=== PATIENT | male | born 1980 | race Hispanic/Latino ===

== ENCOUNTER 2023-08-28 11:07 | Emergency (ER) | payer SELFPAY ==
[2023-08-28] MEDS ORDERED: Famotidine/PF 20 mg/2ml Vial ONE (11:47)
[2023-08-28] MEDS ORDERED: Lorazepam 1 MG TAB ONE (11:47)
[2023-08-28] MEDS ORDERED: Ondansetron PF 4 MG/2 ML Vial ONE (11:47)
[2023-08-28] MEDS ORDERED: Lidocaine 2% Viscous 10 mL, Alum & Magn 30 mL SSW SCH (12:00)
[2023-08-28 12:12] LABS: #Basophils 0.1 10x3/uL (0.0-0.2); #Eosinphils 0.5 10x3/uL (0.0-0.5); #Monocytes 0.6 10x3/uL (0.0-1.1); #Neutrophils 4.4 10x3/uL (1.5-8.4); %Basophils 1.5 % (0.0-2.0); %Eosinophils 7.4 % (0.0-6.0); %Monocytes 9.5 % (0.0-10.0); %Neutrophils 65.3 % (40.0-75.0); Hematocrit 43.8 % (38.8-50.0); Hemoglobin 15.2 g/dL (13.5-17.5); Mean Corpuscular HGB CONC 34.7 g/dL (32.0-36.0); Mean Corpuscular Hemoglobin 34.2 pg (27.0-33.0); Mean Corpuscular Volume 98.6 fl (81.2-95.1); Mean Platelet Volume 11.6 fl (7.4-10.4); Platelet Count 56 10x3/uL (150-450); RBC Distribution Width 13.2 % (11.5-14.5); Red Blood Cell (RBC) Count 4.44 10x6/uL (4.32-5.72); White Blood Cell (WBC) Count 6.8 10x3/uL (3.5-10.5)
[2023-08-28 12:20] LABS: ALT (SGPT) 56 U/L (8-55); AST (SGOT) 127 U/L (5-34); Albumin 3.6 g/dL (3.5-5.0); Alcohol Less than 10.0 mg/dL (Less than 10); Alkaline Phosphatase 299 U/L (40-110); Anion Gap 13 mmol/L (10-20); BUN (Urea Nitrogen) 8 mg/dL (8.9-20.6); Bilirubin, Total 5.4 mg/dL (0.2-1.2); Calc. Creatinine Clearance 0 mL/min (70-130); Calcium 8.2 mg/dL (7.8-10.44); Carbon Dioxide 22 mmol/L (22-29); Chloride 105 mmol/L (98-107); Estimated GFR 122; Globulin 4.3 g/dL (2.4-3.5); Glucose 103 mg/dL (70-105); Lipase 96 U/L (8-78); Potassium 3.7 mmol/L (3.5-5.1); Protein, Total 7.9 g/dL (6.0-8.3); Sodium 136 mmol/L (136-145)
[2023-08-28 12:48] LABS: Large Platelets SLIGHT (None Seen); Platelet Adequacy Comment Appears Decreased
== END 2023-08-28 13:02 | disposition home or self-care (01) ==
LOC: CSHERS 11:07
DX: F10.20 Alcohol dependence, uncomplicated (principal)
CPT/HCPCS: 71045; 80053; 80307; 83690; 83735; 85025; 96374; 96375; J2405; S0028

== ENCOUNTER 2023-08-28 19:29 | Inpatient (IN) | payer SELFPAY ==
[~2023-08-28 19:29] MED LIST: Iopamidol 300 61% 100 ML VIAL FS ONE
[2023-08-28] MEDS ORDERED: Lorazepam 2 MG/ML VIAL ONE ×6 (19:59→23:15)
[2023-08-28 20:20] LABS: Phosphorus 2.9 mg/dL (2.3-4.7)
[2023-08-28 20:22] LABS: ALT (SGPT) 49 U/L (8-55); AST (SGOT) 118 U/L (5-34); Acetaminophen Less than 10 mcg/mL (10.0-30.0); Albumin 3.4 g/dL (3.5-5.0); Alcohol Less than 10.0 mg/dL (Less than 10); Alkaline Phosphatase 259 U/L (40-110); Anion Gap 15 mmol/L (10-20); BUN (Urea Nitrogen) 9 mg/dL (8.9-20.6); Bilirubin, Total 5.6 mg/dL (0.2-1.2); Calc. Creatinine Clearance 0 mL/min (70-130); Calcium 7.5 mg/dL (7.8-10.44); Carbon Dioxide 14 mmol/L (22-29); Chloride 107 mmol/L (98-107); Estimated GFR 122; Globulin 3.7 g/dL (2.4-3.5); Glucose 96 mg/dL (70-105); Lipase 99 U/L (8-78); Magnesium 1.8 mg/dL (1.6-2.6); Potassium 3.7 mmol/L (3.5-5.1); Protein, Total 7.1 g/dL (6.0-8.3); Salicylate Less than 8.0 mg/dL (15.0-30.0); Sodium 132 mmol/L (136-145)
[2023-08-28 20:25] LABS: Troponin I Less than 0.010 ng/mL (< 0.028)
[2023-08-28 20:32] LABS: #Basophils 0.1 10x3/uL (0.0-0.2); #Eosinphils 0.4 10x3/uL (0.0-0.5); #Monocytes 0.6 10x3/uL (0.0-1.1); #Neutrophils 4.3 10x3/uL (1.5-8.4); %Basophils 1.6 % (0.0-2.0); %Eosinophils 6.9 % (0.0-6.0); %Lymphocytes 14.2 % (18.0-47.0); %Monocytes 10.1 % (0.0-10.0); %Neutrophils 66.9 % (40.0-75.0); Hematocrit 41.1 % (38.8-50.0); Hemoglobin 14.5 g/dL (13.5-17.5); Mean Corpuscular HGB CONC 35.3 g/dL (32.0-36.0); Mean Corpuscular Hemoglobin 34.7 pg (27.0-33.0); Mean Corpuscular Volume 98.3 fl (81.2-95.1); Mean Platelet Volume 11.3 fl (7.4-10.4); Platelet Count 56 10x3/uL (150-450); RBC Distribution Width 13.1 % (11.5-14.5); Red Blood Cell (RBC) Count 4.18 10x6/uL (4.32-5.72); White Blood Cell (WBC) Count 6.4 10x3/uL (3.5-10.5)
[2023-08-28 20:47] LABS: INR-International Normal Ratio 1.4; PTT 34.1 sec (22.0-33.0); Prothrombin Time 15.1 sec (9.5-12.1)
[2023-08-28] MEDS ORDERED: Etomidate 40 MG (20 mL) VIAL ONE (21:06)
[2023-08-28] MEDS ORDERED: Rocuronium Bromide 10 MG/ML (10ML VIAL) ONE (21:06)
[2023-08-28] MEDS ORDERED: FENTANYL 2,000MCG/100-0.9%NACL 100 ML ONE (21:11)
[2023-08-28 21:16] LABS: Platelet Adequacy Comment Appears Decreased
[2023-08-28] MEDS ORDERED: Midazolam HCl 10 mg/2 ml Vial ONE (21:20)
[2023-08-28] MEDS ORDERED: Midazolam In 0.9 % NaCl/PF 100 MG in Premix 1 BAG IVPB SCH (21:30)
[2023-08-28 22:07] LABS: Amphetamine Not Detected (NotDetected); Barbiturates Screen Not Detected (NotDetected); Benzodiazepine Screen Detected (NotDetected); Cocaine Metabolite Screen Not Detected (NotDetected); Methadone Not Detected (NotDetected); Methamphetamine Not Detected (NotDetected); Opiate Screen Not Detected (NotDetected); Oxycodone Screen Not Detected (NotDetected); Phencyclidine (PCP) Not Detected (NotDetected); THC/Cannabinoid Screen Not Detected (NotDetected); Tricyclic Screen Not Detected (NotDetected)
[2023-08-28] MEDS ORDERED: Ondansetron ODT 4 MG TAB PO PRN (22:32)
[2023-08-28] MEDS ORDERED: Ondansetron PF 4 MG/2 ML Vial IVP PRN (22:32)
[2023-08-28] MEDS ORDERED: Ventilator Sedation Protocol FS SCH (22:45)
[2023-08-28] MEDS ORDERED: Morphine 2 MG/ML VIAL SLOW IVP PRN (22:45)
[2023-08-28] MEDS ORDERED: Fentanyl BOLUS 250 ML IVPB PRN (22:45)
[2023-08-28] MEDS ORDERED: Propofol 1,000 MG/100 ML VIAL IV PRN (22:45)
[2023-08-28] MEDS ORDERED: DISCONTINUE PREVIOUS NARCOTIC PAIN MEDICATIONS AND BENZODIAZEPINES FS SCH (22:45)
[2023-08-28] MEDS ORDERED: Propofol BOLUS 1,000 MG/100 ML VIAL IV PRN (22:45)
[2023-08-28] MEDS ORDERED: Lorazepam 2 MG/ML VIAL SLOW IVP PRN (22:45)
[2023-08-29] MEDS: Multivitamins, Adult 10 ML, Thiamine HCl 100 MG, Folic Acid 1 MG in Dextrose 5 %-0.45 %... IV SCH
[2023-08-29 00:10] VITALS: BMI 26.9
[2023-08-29 00:46] LABS: Critical Notified Time 2230
[2023-08-29] MEDS ORDERED: cefTRIAXone\\ROCEPHIN 2 GM in Sodium Chloride 0.9% 100 ML IVPB SCH (01:15)
[2023-08-29] MEDS: Pantoprazole 40 MG VIAL IVP SCH ×2 (01:29→20:08)
[2023-08-29] MEDS: Piperacillin/Tazobactam 3.375 GM in Sodium Chloride 0.9% 100 ML IVPB SCH ×2 (01:30→05:06)
[2023-08-29 01:34] LABS: Actual Bicarbonate (HCO3a) 20.3 mEq/L (22-28); Base Excess (BEa) -4.4 mEq/L (-2.0 to +3.0); CO2 Tension 36.4 mmHg (35.0-45.0); Hematocrit-ABG 42 % (42.0-52.0); Hemoglobin (Hb) 14.4 g/dL (14.0-18.0); O2 Tension (PaO2), arterial 216.6 mmHg (80.0-100.0); pH, Arterial 7.364 (7.35-7.45)
[2023-08-29 01:35] LABS: Analyzer IN Cardio CS ER; Carboxyhemoglobin (COHb) 0.4 gm% (0.0-3.0); Potassium - ABG Lab 3.31 mmol/L (3.70-5.30); Puncture Site RBA
[2023-08-29 01:36] LABS: Bilirubin Neg (Negative); Blood, Urine 50 (Negative); Clarity Clear (Clear); Glucose, Urine (Dipstick) Normal (Negative); Ketone, Urine Negative (Negative); Leukocyte Negative (Negative); Nitrite Negative (Negative); Protein, Urine (Dipstick) 30 mg/dl (Neg-Trace)
[2023-08-29 01:37] LABS: Draw Time: 2225; RapidComm Collect By CP.LF1; RapidComm User CP.LF1
[2023-08-29 01:53] LABS: Bacteria/HPF None Seen HPF (None Seen); CAUTI Indications for Culture Alt mental st,lethar; Squamous Epithelial None Seen HPF (0-3); WBC/HPF 0-3 HPF (0-3)
[2023-08-29 01:54] LABS: Urine Culture Reflex No No
[2023-08-29] MEDS ORDERED: Piperacillin/Tazobactam 3.375 GM in Sodium Chloride 0.9% 100 ML IVPB SCH (02:00)
[2023-08-29 03:39] LABS: ALT (SGPT) 44 U/L (8-55); AST (SGOT) 100 U/L (5-34); Alkaline Phosphatase 233 U/L (40-110); Anion Gap 12 mmol/L (10-20); BUN (Urea Nitrogen) 9 mg/dL (8.9-20.6); Bilirubin, Total 4.8 mg/dL (0.2-1.2); Calc. Creatinine Clearance 156 mL/min (70-130); Calcium 7.2 mg/dL (7.8-10.44); Carbon Dioxide 18 mmol/L (22-29); Chloride 108 mmol/L (98-107); Estimated GFR 122; Globulin 3.3 g/dL (2.4-3.5); Glucose 100 mg/dL (70-105); Potassium 3.2 mmol/L (3.5-5.1); Protein, Total 6.3 g/dL (6.0-8.3); Sodium 135 mmol/L (136-145)
[2023-08-29] MEDS ORDERED: Electrolyte Replacement Protocol FS SCH (04:15)
[2023-08-29] MEDS: Magnesium 2 GM/50 ML(in water) 2 GM in Premix 1 BAG IVPB SCH (05:06)
[2023-08-29] MEDS: Potassium Chloride 20 MEQ in Premix 1 BAG IVPB SCH (05:06)
[2023-08-29 06:04] LABS: Magnesium 1.9 mg/dL (1.6-2.6)
[2023-08-29 07:43] LABS: RapidComm Comment CP.LF1
[2023-08-29] MEDS ORDERED: Lorazepam 1 MG TAB PO PRN (08:16)
[2023-08-29] MEDS ORDERED: Lorazepam 2 MG/ML VIAL IVPB PRN (08:16)
[2023-08-29] MEDS ORDERED: Ondansetron ODT 4 MG TAB PO PRN (08:16)
[2023-08-29] MEDS ORDERED: Electrolyte Replacement Protocol 1 EACH FS SCH (08:30)
[2023-08-29] MEDS ORDERED: Enoxaparin 40 MG (0.4 mL) SYRINGE SC SCH (09:00)
[2023-08-29] MEDS: Lorazepam 1 MG TAB PO SCH (10:33)
[2023-08-29] MEDS: Multivit, Therapeutic 1 TAB PO SCH (10:33)
[2023-08-29] MEDS: Folic Acid 1 MG TAB PO SCH (10:34)
[2023-08-29] MEDS: Thiamine HCl 200 MG/2 ML VIAL SLOW IVP SCH (10:34)
[2023-08-29] MEDS: Dexmedetomidine In 0.9 % NaCl 100 ML IVPB SCH (10:34)
[2023-08-29] MEDS: FENTANYL 2,000MCG/100-0.9%NACL 100 ML IVPB SCH (12:23)
[2023-08-29] MEDS: Acetaminophen 325 MG Suppository PR SCH (21:22)
[2023-08-30 03:49] LABS: #Basophils 0.1 10x3/uL (0.0-0.2); #Eosinphils 0.4 10x3/uL (0.0-0.5); #Monocytes 0.7 10x3/uL (0.0-1.1); #Neutrophils 3.7 10x3/uL (1.5-8.4); %Basophils 1.2 % (0.0-2.0); %Eosinophils 7.2 % (0.0-6.0); %Monocytes 11.9 % (0.0-10.0); %Neutrophils 65.3 % (40.0-75.0); Hematocrit 39.8 % (38.8-50.0); Hemoglobin 13.6 g/dL (13.5-17.5); Mean Corpuscular HGB CONC 34.2 g/dL (32.0-36.0); Mean Corpuscular Hemoglobin 34.8 pg (27.0-33.0); Mean Corpuscular Volume 101.8 fl (81.2-95.1); Mean Platelet Volume 11.4 fl (7.4-10.4); Platelet Count 46 10x3/uL (150-450); RBC Distribution Width 13.1 % (11.5-14.5); Red Blood Cell (RBC) Count 3.91 10x6/uL (4.32-5.72); White Blood Cell (WBC) Count 5.7 10x3/uL (3.5-10.5)
[2023-08-30 03:57] LABS: ALT (SGPT) 45 U/L (8-55); AST (SGOT) 119 U/L (5-34); Albumin 2.9 g/dL (3.5-5.0); Alkaline Phosphatase 193 U/L (40-110); Anion Gap 10 mmol/L (10-20); BUN (Urea Nitrogen) 10 mg/dL (8.9-20.6); Bilirubin, Total 5.8 mg/dL (0.2-1.2); Calc. Creatinine Clearance 162 mL/min (70-130); Calcium 7.5 mg/dL (7.8-10.44); Carbon Dioxide 18 mmol/L (22-29); Chloride 110 mmol/L (98-107); Estimated GFR 124; Globulin 3.5 g/dL (2.4-3.5); Glucose 92 mg/dL (70-105); Magnesium 2.2 mg/dL (1.6-2.6); Phosphorus 3.1 mg/dL (2.3-4.7); Potassium 3.9 mmol/L (3.5-5.1); Protein, Total 6.4 g/dL (6.0-8.3); Sodium 134 mmol/L (136-145)
[2023-08-30 05:14] LABS: Platelet Adequacy Comment Appears Decreased; RBC Morph Comment Within Normal Limits
[2023-08-30] MEDS ORDERED: Lorazepam 1 MG TAB PO PRN (08:16)
[2023-08-30] MEDS ORDERED: Magnevist 469MG/ML 20 ML VIAL ONE (12:07)
[2023-08-30] MEDS: Propranolol 10 MG TAB PO SCH (21:35)
[2023-08-31 04:45] LABS: #Basophils 0.1 10x3/uL (0.0-0.2); #Eosinphils 0.3 10x3/uL (0.0-0.5); #Monocytes 0.8 10x3/uL (0.0-1.1); #Neutrophils 3.4 10x3/uL (1.5-8.4); %Basophils 0.9 % (0.0-2.0); %Eosinophils 6.1 % (0.0-6.0); %Lymphocytes 15.4 % (18.0-47.0); %Monocytes 15.3 % (0.0-10.0); %Neutrophils 61.9 % (40.0-75.0); Hemoglobin 13.1 g/dL (13.5-17.5); Mean Corpuscular HGB CONC 34.5 g/dL (32.0-36.0); Mean Corpuscular Hemoglobin 34.6 pg (27.0-33.0); Mean Corpuscular Volume 100.3 fl (81.2-95.1); Mean Platelet Volume 11.6 fl (7.4-10.4); Platelet Count 60 10x3/uL (150-450); RBC Distribution Width 12.8 % (11.5-14.5); Red Blood Cell (RBC) Count 3.79 10x6/uL (4.32-5.72); White Blood Cell (WBC) Count 5.4 10x3/uL (3.5-10.5)
[2023-08-31 05:03] LABS: ALT (SGPT) 44 U/L (8-55); AST (SGOT) 97 U/L (5-34); Albumin 2.8 g/dL (3.5-5.0); Alkaline Phosphatase 223 U/L (40-110); Anion Gap 10 mmol/L (10-20); BUN (Urea Nitrogen) 8 mg/dL (8.9-20.6); Bilirubin, Total 3.4 mg/dL (0.2-1.2); Calc. Creatinine Clearance 163 mL/min (70-130); Calcium 7.7 mg/dL (7.8-10.44); Carbon Dioxide 23 mmol/L (22-29); Chloride 106 mmol/L (98-107); Estimated GFR 124; Globulin 3.2 g/dL (2.4-3.5); Glucose 95 mg/dL (70-105); Phosphorus 2.8 mg/dL (2.3-4.7); Potassium 4.1 mmol/L (3.5-5.1); Sodium 135 mmol/L (136-145)
[2023-08-31] MEDS ORDERED: Lorazepam 1 MG TAB PO PRN (08:16)
[2023-08-31] MEDS ORDERED: Lorazepam 0.5 MG TAB PO SCH (08:30)
[2023-08-31] MEDS: Magnesium 2 GM/50 ML(in water) 2 GM in Premix 1 BAG IVPB SCH (08:47)
[2023-08-31] MEDS: LevoFLOXacin 750 MG TAB PO SCH (09:52)
[2023-08-31 12:17] VITALS: BP 124/74; TEMP 98.3
[2023-09-01] MEDS ORDERED: LevoFLOXacin 750 MG TAB PO SCH (06:00)
[2023-09-01] MEDS ORDERED: Lorazepam 0.5 MG TAB PO PRN (08:16)
[2023-09-01] MEDS ORDERED: Thiamine 100 MG TAB PO SCH (09:00)
== END 2023-08-31 12:49 | disposition home or self-care (01) | DRG 871 ==
LOC: CSHERS 19:29 → CSHICU 23:20 → CSHTELE 08-30 18:38
PROVIDERS: ADMIT Student in an Organized Health Care Education/Training Program; ATTEND Family Medicine
PROC: 4A033R1 Measurement of Arterial Saturation, Peripheral, Percutaneous Approach (ICD-10-PCS; principal; 2023-08-28)
PROC: 5A1935Z Respiratory Ventilation, Less than 24 Consecutive Hours (ICD-10-PCS; 2023-08-28)
PROC: 0BH17EZ Insertion of Endotracheal Airway into Trachea, Via Natural or Artificial Opening (ICD-10-PCS; 2023-08-28)
PROC: 3E03329 Introduction of Other Anti-infective into Peripheral Vein, Percutaneous Approach (ICD-10-PCS; 2023-08-29)
DX: A41.9 Sepsis, unspecified organism (principal); G93.41 Metabolic encephalopathy; J96.01 Acute respiratory failure with hypoxia; F10.239 Alcohol dependence with withdrawal, unspecified; R44.0 Auditory hallucinations; K76.0 Fatty (change of) liver, not elsewhere classified; Z90.49 Acquired absence of other specified parts of digestive tract; E80.6 Other disorders of bilirubin metabolism; R74.01 Elevation of levels of liver transaminase levels; K80.20 Calculus of gallbladder without cholecystitis without obstruction; K74.60 Unspecified cirrhosis of liver; D69.6 Thrombocytopenia, unspecified; R41.0 Disorientation, unspecified; I27.20 Pulmonary hypertension, unspecified; R16.1 Splenomegaly, not elsewhere classified; Z85.028 Personal history of other malignant neoplasm of stomach
CPT/HCPCS: 36415; 36416; 36600; 70450; 71045; 74177; 74183; 80053; 80306; 80307; 81001; 82105; 82140; 82805; 83605; 83690; 83735; 84100; 84145; 84484; 85025; 85610; 85730; 87040; 93005; 93010; 94002; 94003; 94760; A9579; C9113; J2060; J2250; J2543; J3411; J3475; J3480; J3490; J7042; Q9967

== ENCOUNTER 2024-05-16 16:39 | Emergency (ER) | payer SELFPAY ==
[2024-05-16 18:31] LABS: #Basophils 0.11 10x3/uL (0.0-0.2); #Eosinophils 0.25 10x3/uL (0.0-0.5); #Monocytes 0.54 10x3/uL (0.0-1.1); #Neutrophils 3.57 10x3/uL (1.5-8.4); %Basophils 1.8 % (0.0-2.0); %Eosinophils 4.2 % (0.0-6.0); %Lymphocytes 24.5 % (18.0-47.0); %Monocytes 9.1 % (0.0-10.0); %Neutrophils 59.9 % (40.0-75.0); Hematocrit 37.6 % (38.8-50.0); Hemoglobin 13.1 g/dL (13.5-17.5); Mean Corpuscular HGB CONC 34.8 g/dL (32.0-36.0); Mean Corpuscular Hemoglobin 34.9 pg (27.0-33.0); Mean Corpuscular Volume 100.3 fL (81.2-95.1); Mean Platelet Volume 11.2 fL (7.4-10.4); Platelet Count 70 10x3/uL (150-450); RBC Distribution Width 13.3 % (11.5-14.5); Red Blood Cell (RBC) Count 3.75 10x6/uL (4.32-5.72)
[2024-05-16 18:37] LABS: ALT (SGPT) 67 U/L (8-55); AST (SGOT) 167 U/L (5-34); Albumin 2.4 g/dL (3.5-5.0); Alkaline Phosphatase 284 U/L (40-110); Anion Gap 13 mmol/L (10-20); BUN (Urea Nitrogen) 4 mg/dL (8.9-20.6); Bilirubin, Total 3.3 mg/dL (0.2-1.2); Calc. Creatinine Clearance 0 mL/min (70-130); Carbon Dioxide 21 mmol/L (22-29); Chloride 109 mmol/L (98-107); Estimated GFR 121; Glucose 102 mg/dL (70-105); Lipase 147 U/L (8-78); Potassium 3.9 mmol/L (3.5-5.1); Protein, Total 7.4 g/dL (6.0-8.3); Sodium 139 mmol/L (136-145)
[2024-05-16 19:05] LABS: Anisocytosis MODERATE=16-30 cells (100X) (0-5/hpf)
[2024-05-16 19:06] LABS: Platelet Adequacy Comment Appears Decreased
[2024-05-16 19:41] LABS: Bilirubin Neg (Negative); Blood, Urine Negative (Negative); Clarity Clear (Clear); Glucose, Urine (Dipstick) Normal (Negative); Ketone, Urine Negative (Negative); Leukocyte Negative (Negative); Nitrite Negative (Negative); Protein, Urine (Dipstick) Negative (Neg-Trace); Urobilinogen Normal mg/dL (Less than 2)
[2024-05-16 19:47] LABS: Bacteria/HPF Rare-Few HPF (None Seen); CAUTI Indications for Culture Dysuria,urgency,freq; RBC/HPF 0-3 HPF (0-3); Squamous Epithelial 0-3 HPF (0-3); WBC/HPF 0-3 HPF (0-3)
[2024-05-16 19:48] LABS: Urine Culture Reflex No No
== END 2024-05-16 20:50 | disposition home or self-care (01) ==
LOC: CSHERS 16:39
DX: R60.0 Localized edema (principal)
CPT/HCPCS: 80053; 81001; 83690; 83880; 85025; 93970

== ENCOUNTER 2024-06-08 20:38 | Emergency (ER) | payer SELFPAY ==
[2024-06-08] MEDS ORDERED: Ketorolac Tromethamine 30 MG (1 mL) VIAL ONE (21:01)
[2024-06-08 21:32] LABS: #Basophils 0.09 10x3/uL (0.0-0.2); #Eosinophils 0.36 10x3/uL (0.0-0.5); #Monocytes 0.52 10x3/uL (0.0-1.1); #Neutrophils 4.05 10x3/uL (1.5-8.4); %Basophils 1.4 % (0.0-2.0); %Eosinophils 5.5 % (0.0-6.0); %Lymphocytes 23.4 % (18.0-47.0); %Monocytes 7.9 % (0.0-10.0); %Neutrophils 61.6 % (40.0-75.0); Hematocrit 37.1 % (38.8-50.0); Hemoglobin 12.8 g/dL (13.5-17.5); Mean Corpuscular HGB CONC 34.5 g/dL (32.0-36.0); Mean Corpuscular Volume 98.7 fL (81.2-95.1); Mean Platelet Volume 11.4 fL (7.4-10.4); Platelet Count 65 10x3/uL (150-450); RBC Distribution Width 13.6 % (11.5-14.5); Red Blood Cell (RBC) Count 3.76 10x6/uL (4.32-5.72); White Blood Cell (WBC) Count 6.5 10x3/uL (3.5-10.5)
[2024-06-08 21:40] LABS: INR-International Normal Ratio 1.3; PTT 32.3 sec (22.0-33.0); Prothrombin Time 14.2 sec (9.5-12.1)
[2024-06-08 21:43] LABS: ALT (SGPT) 43 U/L (8-55); AST (SGOT) 123 U/L (5-34); Albumin 2.4 g/dL (3.5-5.0); Alkaline Phosphatase 308 U/L (40-110); Anion Gap 15 mmol/L (10-20); BUN (Urea Nitrogen) 4 mg/dL (8.9-20.6); Bilirubin, Total 3.2 mg/dL (0.2-1.2); Calc. Creatinine Clearance 0 mL/min (70-130); Calcium 8.5 mg/dL (7.8-10.44); Carbon Dioxide 21 mmol/L (22-29); Chloride 110 mmol/L (98-107); Estimated GFR 119; Globulin 4.9 g/dL (2.4-3.5); Glucose 76 mg/dL (70-105); Magnesium 1.9 mg/dL (1.6-2.6); Potassium 3.8 mmol/L (3.5-5.1); Protein, Total 7.3 g/dL (6.0-8.3); Sodium 142 mmol/L (136-145)
[2024-06-08 21:49] LABS: Troponin I Less than 0.010 ng/mL (< 0.028)
[2024-06-08] MEDS ORDERED: HYDROcodone/Acetaminophen 10/325 mg Tablet ONE (22:56)
== END 2024-06-08 23:51 | disposition home or self-care (01) ==
LOC: CSHERS 20:38
DX: M79.662 Pain in left lower leg (principal); M79.661 Pain in right lower leg
CPT/HCPCS: 36415; 71045; 80053; 83735; 83880; 84443; 84484; 85025; 85610; 85730; 93005; 96372; J1885

== ENCOUNTER 2024-06-10 22:31 | Emergency (ER) | payer SELFPAY ==
[2024-06-11] MEDS ORDERED: Doxycycline 100 MG CAP PO SCH (01:30)
== END 2024-06-11 01:34 | disposition home or self-care (01) ==
LOC: CSHERS 22:31
DX: L03.116 Cellulitis of left lower limb (principal)
CPT/HCPCS: 99283